=== PATIENT | male | born 1950 | race African-American/Black ===

== ENCOUNTER 2020-11-12 10:33 | Inpatient (IN) | payer MEDICARE, MEDICAID ==
[2020-11-12 11:50] LABS: #Eosinphils 0.3 thou/uL (0.0-0.7); #Lymphocytes 1.7 thou/uL (1.20-3.40); #Monocytes 0.5 thou/uL (0.11-0.59); #Neutrophils 4.5 thou/uL (1.40-6.50); %Basophils 0.7 % (0.0-1.0); %Eosinophils 4.8 % (0.0-10.0); %Lymphocytes 23.2 % (21.0-51.0); %Monocytes 7.6 % (0.0-10.0); %Neutrophils 63.7 % (42.0-75.0); Hemoglobin 10.5 g/dL (14.0-18.0); Mean Corpuscular HGB CONC 33.8 g/dL (32.0-36.0); Mean Corpuscular Hemoglobin 30.8 pg (27.0-31.0); Mean Corpuscular Volume 90.9 fL (78.0-98.0); Mean Platelet Volume 8.9 fL (7.4-10.4); Platelet Count 210 thou/uL (130-400); RBC Distribution Width 13.1 % (11.5-14.5); Red Blood Cell (RBC) Count 3.42 mill/uL (4.70-6.10); White Blood Cell (WBC) Count 7.1 thou/uL (4.8-10.8)
[2020-11-12] MEDS ORDERED: Furosemide 20 MG/2 ML VIAL ONE (11:53)
[2020-11-12] MEDS ORDERED: Nitroglycerin 2% Ointment 1 INCH/1 GM Packet ONE (11:53)
[2020-11-12 12:09] LABS: ALT (SGPT) 17 U/L (8-55); AST (SGOT) 15 U/L (5-34); Alkaline Phosphatase 53 U/L (40-110); Anion Gap 11 mmol/L (10-20); BUN (Urea Nitrogen) 29 mg/dL (8.4-25.7); Bilirubin, Total 0.3 mg/dL (0.2-1.2); Calc. Creatinine Clearance 0 mL/min (70-130); Calcium 8.8 mg/dL (7.8-10.44); Carbon Dioxide 28 mmol/L (23-31); Chloride 107 mmol/L (98-107); Globulin 3.6 g/dL (2.4-3.5); Glucose 134 mg/dL (80-115); Lipase 30 U/L (8-78); Potassium 4.3 mmol/L (3.5-5.1); Protein, Total 6.6 g/dL (5.8-8.1); Sodium 142 mmol/L (136-145)
[2020-11-12 12:40] LABS: CKMB 1.7 ng/mL (0-6.6)
[2020-11-12] MEDS ORDERED: hydrALAZINE 20 MG/ML VIAL ONE (12:53)
[2020-11-12] MEDS ORDERED: niCARdipine 20MG In NaCl 20 MG/200 ML BAG ONE (14:19)
[2020-11-12] MEDS ORDERED: Ondansetron PF 4 MG/2 ML Vial IVP PRN ×2 (16:00→17:48)
[2020-11-12] MEDS ORDERED: Ondansetron ODT 4 MG TAB SL PRN (16:00)
[2020-11-12] MEDS ORDERED: Amlodipine 5 MG TAB PO SCH (17:00)
[2020-11-12] MEDS ORDERED: Hydrochlorothiazide 25 MG TAB PO SCH (17:00)
[2020-11-12] MEDS ORDERED: Valsartan 80 MG TAB PO SCH (17:00)
[2020-11-12] MEDS: Hydrochlorothiazide 25 MG TAB PO SCH (17:16)
[2020-11-12] MEDS: Amlodipine 5 MG TAB PO SCH (17:16)
[2020-11-12 17:59] LABS: Critical Call Chem Troponin I RESULT DECREASING; Troponin I 0.409 ng/mL (< 0.028)
[2020-11-12] MEDS ORDERED: Dextrose 5% in Water 1,000 ML IV PRN (18:34)
[2020-11-12] MEDS ORDERED: Dextrose 50% Abboject 50 ML SYRINGE SLOW IVP PRN (18:34)
[2020-11-12] MEDS: HumaLOG 300 UNITS/3 ML VIAL SC PRN (22:00)
[2020-11-13] MEDS: Furosemide 40 MG TAB PO SCH (06:36)
[2020-11-13] MEDS: Amlodipine 5 MG TAB PO SCH ×2 (08:39→13:04)
[2020-11-13] MEDS: Hydrochlorothiazide 25 MG TAB PO SCH (08:39)
[2020-11-13] MEDS ORDERED: Valsartan 80 MG TAB PO SCH (09:00)
[2020-11-13 09:05] LABS: Hemoglobin 10.1 g/dL (14.0-18.0); Mean Corpuscular HGB CONC 33.2 g/dL (32.0-36.0); Mean Corpuscular Hemoglobin 30.1 pg (27.0-31.0); Mean Corpuscular Volume 90.8 fL (78.0-98.0); Mean Platelet Volume 8.5 fL (7.4-10.4); Platelet Count 207 thou/uL (130-400); RBC Distribution Width 13.2 % (11.5-14.5); Red Blood Cell (RBC) Count 3.36 mill/uL (4.70-6.10); White Blood Cell (WBC) Count 7.8 thou/uL (4.8-10.8)
[2020-11-13 09:17] LABS: Anion Gap 10 mmol/L (10-20); BUN (Urea Nitrogen) 29 mg/dL (8.4-25.7); Calc. Creatinine Clearance 40 mL/min (70-130); Calcium 8.9 mg/dL (7.8-10.44); Carbon Dioxide 30 mmol/L (23-31); Chloride 104 mmol/L (98-107); Glucose 147 mg/dL (80-115); Sodium 140 mmol/L (136-145)
[2020-11-13] MEDS: Heparin 5,000 UNITS/ML VIAL SC SCH ×3 (09:40→21:09)
[2020-11-13] MEDS ORDERED: hydrALAZINE 20 MG/ML VIAL SLOW IVP PRN (12:42)
[2020-11-13] MEDS ORDERED: Amlodipine 5 MG TAB PO SCH (12:45)
[2020-11-13] MEDS ORDERED: Ferrous Sulfate 325 MG TAB PO SCH (15:00)
[2020-11-13] MEDS: hydrALAZINE 25 MG TAB PO SCH ×2 (15:29→21:09)
[2020-11-13 16:52] LABS: Bacteria/HPF None Seen HPF (None Seen); Bilirubin Negative (Negative); Blood, Urine 1+ (Negative); Clarity Clear (Clear); Glucose, Urine (Dipstick) 50 mg/dL (Negative); Ketone, Urine Negative (Negative); Leukocyte Negative Leu/uL (Negative); Nitrite Negative (Negative); Protein, Urine (Dipstick) 300 mg/dL (Neg-Trace); RBC/HPF 0-3 HPF (0-3); Specific Gravity, Urine 1.012 (1.002-1.036); Squamous Epithelial None Seen HPF (0-3); Urobilinogen Normal mg/dL (Less than 2); WBC/HPF 0-3 HPF (0-3); pH, Urine 6.5 (5.0-9.0)
[2020-11-13 16:54] LABS: Urine Culture Reflex No No
[2020-11-13] MEDS: Labetalol HCl 100 MG/20 ML VIAL SLOW IVP PRN (17:17)
[2020-11-13] MEDS: Metoprolol Tartrate 25 MG TAB PO SCH (21:09)
[2020-11-14] MEDS: Labetalol HCl 100 MG/20 ML VIAL SLOW IVP PRN (03:52)
[2020-11-14 04:17] LABS: Anion Gap 10 mmol/L (10-20); BUN (Urea Nitrogen) 33 mg/dL (8.4-25.7); Calc. Creatinine Clearance 39 mL/min (70-130); Calcium 8.5 mg/dL (7.8-10.44); Carbon Dioxide 29 mmol/L (23-31); Cardiac Risk 4.6 (Less than 4.5); Chloride 105 mmol/L (98-107); Cholesterol 213 mg/dl (< 200 Desired); Glucose 123 mg/dL (80-115); HDL Cholesterol 46 mg/dL (>60 Neg Risk); LDL Cholesterol, Calculated 150 mg/dL; Potassium 3.9 mmol/L (3.5-5.1); Sodium 140 mmol/L (136-145); Triglycerides 83 mg/dL (Less than 150)
[2020-11-14] MEDS: Furosemide 40 MG TAB PO SCH (08:20)
[2020-11-14] MEDS: Metoprolol Tartrate 25 MG TAB PO SCH (08:20)
[2020-11-14] MEDS: hydrALAZINE 25 MG TAB PO SCH ×4 (08:20→21:01)
[2020-11-14] MEDS: Ferrous Sulfate 325 MG TAB PO SCH (08:20)
[2020-11-14] MEDS: Amlodipine 10 MG TAB PO SCH (08:20)
[2020-11-14] MEDS: Heparin 5,000 UNITS/ML VIAL SC SCH ×3 (08:21→21:02)
[2020-11-14] MEDS ORDERED: hydrALAZINE 25 MG TAB PO SCH (09:45)
[2020-11-14] MEDS ORDERED: Carvedilol 3.125 MG TAB PO SCH (10:45)
[2020-11-14] MEDS: HumaLOG 300 UNITS/3 ML VIAL SC PRN (11:45)
[2020-11-14 16:10] LABS: SARS-CoV-2 PCR NAA for Saliva Not Detected (NotDetected)
[2020-11-14] MEDS: Carvedilol 6.25 MG TAB PO SCH (16:22)
[2020-11-14] MEDS: Rosuvastatin 20 MG TAB PO SCH (21:01)
[2020-11-15] MEDS: Carvedilol 6.25 MG TAB PO SCH ×2 (07:56→15:44)
[2020-11-15] MEDS: Furosemide 40 MG TAB PO SCH (07:56)
[2020-11-15] MEDS: Ferrous Sulfate 325 MG TAB PO SCH (07:57)
[2020-11-15] MEDS: Amlodipine 10 MG TAB PO SCH (07:57)
[2020-11-15] MEDS: Heparin 5,000 UNITS/ML VIAL SC SCH ×3 (07:57→21:21)
[2020-11-15] MEDS: hydrALAZINE 25 MG TAB PO SCH ×3 (07:57→21:21)
[2020-11-15 08:35] LABS: Anion Gap 13 mmol/L (10-20); BUN (Urea Nitrogen) 33 mg/dL (8.4-25.7); Calc. Creatinine Clearance 39 mL/min (70-130); Calcium 8.6 mg/dL (7.8-10.44); Carbon Dioxide 27 mmol/L (23-31); Chloride 105 mmol/L (98-107); Glucose 139 mg/dL (80-115); Potassium 3.9 mmol/L (3.5-5.1); Sodium 141 mmol/L (136-145)
[2020-11-15] MEDS ORDERED: Valsartan 80 MG TAB PO SCH (09:00)
[2020-11-15] MEDS: HumaLOG 300 UNITS/3 ML VIAL SC PRN (11:27)
[2020-11-15] MEDS: Rosuvastatin 20 MG TAB PO SCH (21:21)
[2020-11-16] MEDS: Amlodipine 10 MG TAB PO SCH (08:17)
[2020-11-16] MEDS: hydrALAZINE 25 MG TAB PO SCH ×2 (08:17→15:05)
[2020-11-16] MEDS: Heparin 5,000 UNITS/ML VIAL SC SCH ×2 (08:18→15:05)
[2020-11-16] MEDS: Carvedilol 6.25 MG TAB PO SCH (08:18)
[2020-11-16] MEDS: Furosemide 40 MG TAB PO SCH (08:18)
[2020-11-16] MEDS: Ferrous Sulfate 325 MG TAB PO SCH (08:18)
[2020-11-16] MEDS ORDERED: Carvedilol 6.25 MG TAB PO SCH ×2 (08:45→17:00)
[2020-11-16 15:06] VITALS: BP 161/79; TEMP 97.8
== END 2020-11-16 16:00 | disposition home or self-care (01) | DRG 280 ==
LOC: ERS 10:33 → ERHOLD 12:56 → CCU 15:43 → 2NO 11-13 14:47
PROVIDERS: ADMIT Internal Medicine; ATTEND Internal Medicine
DX: I16.1 Hypertensive emergency (principal); I21.A1 Myocardial infarction type 2; I50.33 Acute on chronic diastolic (congestive) heart failure; N17.9 Acute kidney failure, unspecified; D50.9 Iron deficiency anemia, unspecified; E78.5 Hyperlipidemia, unspecified; I13.0 Hypertensive heart and chronic kidney disease with heart failure and stage 1 through stage 4 chronic kidney disease, or unspecified chronic kidney disease; E11.22 Type 2 diabetes mellitus with diabetic chronic kidney disease; N18.30 Chronic kidney disease, stage 3 unspecified; Z20.822 Contact with and (suspected) exposure to COVID-19
CPT/HCPCS: 36415; 36416; 71045; 76770; 80048; 80053; 80061; 81001; 82553; 83036; 83690; 83880; 84484; 85025; 85027; 87635; 93005; 93306; 96365; 96375; J0360; J1644; J1815; J1940; J2405; U0003; U0005

== ENCOUNTER 2022-12-04 08:16 | Outpatient (CLI) | payer OTHER, MEDICAID ==
[2022-12-04 09:57] LABS: Hemoglobin 11.5 g/dL (13.5-17.5); Mean Corpuscular HGB CONC 31.6 g/dL (32.0-36.0); Mean Corpuscular Hemoglobin 28.8 pg (27.0-33.0); Mean Platelet Volume 11.8 fl (7.4-10.4); Platelet Count 191 10x3/uL (150-450); RBC Distribution Width 13.2 % (11.5-14.5); White Blood Cell (WBC) Count 5.4 10x3/uL (3.5-10.5)
[2022-12-04 10:17] LABS: Anion Gap 15 mmol/L (10-20); BUN (Urea Nitrogen) 57 mg/dL (8.4-25.7); Calc. Creatinine Clearance 0 mL/min (70-130); Calcium 8.6 mg/dL (7.8-10.44); Carbon Dioxide 21 mmol/L (23-31); Chloride 109 mmol/L (98-107); Estimated GFR 12; Glucose 139 mg/dL (80-115); Potassium 4.4 mmol/L (3.5-5.1); Sodium 141 mmol/L (136-145)
[2022-12-04 10:20] LABS: INR-International Normal Ratio 0.9; PTT 30.3 sec (22.0-33.0); Prothrombin Time 10.1 sec (9.5-12.1)
== END 2022-12-04 08:17 | disposition home or self-care (01) ==
LOC: LABBT 08:16
PROVIDERS: ATTEND Urology
DX: Z01.818 Encounter for other preprocedural examination (principal); N40.1 Benign prostatic hyperplasia with lower urinary tract symptoms
CPT/HCPCS: 80048; 85027; 85610; 85730; 87086; 93005; 93010

== ENCOUNTER 2022-12-27 09:43 | Outpatient (CLI) | payer OTHER, MEDICAID ==
[2022-12-27 11:25] LABS: #Basophils 0.1 10x3/uL (0.0-0.2); #Eosinphils 0.3 10x3/uL (0.0-0.5); #Monocytes 0.5 10x3/uL (0.0-1.1); #Neutrophils 2.9 10x3/uL (1.5-8.4); %Basophils 0.9 % (0.0-2.0); %Eosinophils 6.1 % (0.0-6.0); %Lymphocytes 30.1 % (18.0-47.0); %Monocytes 8.7 % (0.0-10.0); Hemoglobin 11.5 g/dL (13.5-17.5); Mean Corpuscular HGB CONC 31.1 g/dL (32.0-36.0); Mean Corpuscular Hemoglobin 28.5 pg (27.0-33.0); Mean Corpuscular Volume 91.8 fl (81.2-95.1); Mean Platelet Volume 11.6 fl (7.4-10.4); Platelet Count 204 10x3/uL (150-450); RBC Distribution Width 13.2 % (11.5-14.5); Red Blood Cell (RBC) Count 4.03 10x6/uL (4.32-5.72); White Blood Cell (WBC) Count 5.4 10x3/uL (3.5-10.5)
[2022-12-27 11:39] LABS: ALT (SGPT) 26 U/L (8-55); AST (SGOT) 20 U/L (5-34); Albumin 3.7 g/dL (3.4-4.8); Alkaline Phosphatase 50 U/L (40-110); Anion Gap 14 mmol/L (10-20); BUN (Urea Nitrogen) 51 mg/dL (8.4-25.7); Bilirubin, Total 0.3 mg/dL (0.2-1.2); Calc. Creatinine Clearance 0 mL/min (70-130); Calcium 8.7 mg/dL (7.8-10.44); Carbon Dioxide 23 mmol/L (23-31); Chloride 109 mmol/L (98-107); Estimated GFR 14; Globulin 3.2 g/dL (2.4-3.5); Glucose 136 mg/dL (80-115); Potassium 4.8 mmol/L (3.5-5.1); Protein, Total 6.9 g/dL (5.8-8.1); Sodium 141 mmol/L (136-145)
== END 2022-12-27 09:44 | disposition home or self-care (01) ==
LOC: LABBT 09:43
PROVIDERS: ATTEND Internal Medicine Cardiovascular Disease
DX: Z01.818 Encounter for other preprocedural examination (principal); R94.39 Abnormal result of other cardiovascular function study
CPT/HCPCS: 80053; 85025; 93005; 93010